=== PATIENT | male | born 1945 | race Caucasian/White ===

== ENCOUNTER 2019-04-28 02:33 | Day surgery (SDC) | payer OTHER ==
[2019-04-28] VITALS (7 sets, daily range): BP systolic 134–165; BP diastolic 64–77
[~2019-04-28] VITALS: Ht 182.9 cm; Wt 100.0 kg
[2019-04-28] MEDS ORDERED: METAL LOCK LOOP XX ONE (02:53)
[2019-04-28] MEDS ORDERED: NS 500 ML IV ONE (03:15)
[2019-04-28 03:36] LABS: BASO # 0.1 10^3/uL (0.0-0.2); BASO % 0.5 % (0.0-1.0); EOS # 0.4 10^3/uL (0.0-0.50); EOS % 4.2 % (0.0-3.0); HEMATOCRIT 48.1 % (42.0-52.0); HEMOGLOBIN 15.6 g/dl (13.5-17.5); LYMPH # 1.6 10^3/uL (1.5-4.5); LYMPH % 16.5 % (24.0-44.0); MEAN CORPUSCULAR HGB CONC 32.4 g/dl (32.0-36.5); MEAN CORPUSCULAR VOLUME 92.5 fl (80.0-96.0); MONO # 0.8 10^3/uL (0.0-0.8); MONO % 7.9 % (0.0-5.0); NEUTROPHILS % 70.7 % (36.0-66.0); PLATELET COUNT, AUTOMATED 277 10^3/uL (150-450); WHITE BLOOD COUNT 9.9 10^3/uL (4.0-10.0)
[2019-04-28] MEDS ORDERED: LIPI20TA PO (03:39)
[2019-04-28] MEDS ORDERED: BAYE325T12 PO (03:39)
[2019-04-28] MEDS ORDERED: AMLO5TAB6 PO (03:40)
[2019-04-28 03:47] LABS: INR 0.93; PROTHROMBIN TIME 12.6 SECONDS (12.1-14.4)
[2019-04-28 03:48] LABS: PARTIAL THROMBOPLASTIN TIME 33.8 SECONDS (25.4-37.6)
[2019-04-28] MEDS ORDERED: ONDANSETRON 4MG/2ML VIAL (J2405) As Ordered ONE ×2 (03:53→10:39)
[2019-04-28 03:55] LABS: ALBUMIN 3.8 GM/DL (3.2-5.2); ALT/SGPT 28 U/L (12-78); BILIRUBIN,DIRECT 0.2 MG/DL (0.0-0.2); BILIRUBIN,TOTAL 0.4 MG/DL (0.2-1.0); BLOOD UREA NITROGEN 15 MG/DL (7-18); CALCIUM LEVEL 8.6 MG/DL (8.8-10.2); CARBON DIOXIDE LEVEL 27 MEQ/L (21-32); CHLORIDE LEVEL 108 MEQ/L (98-107); GLOMERULAR FILTRATION RATE > 60.0 (>42); GLUCOSE, FASTING 156 MG/DL (70-100); LIPASE 223 U/L (73-393); POTASSIUM SERUM 4.4 MEQ/L (3.5-5.1); SODIUM LEVEL 142 MEQ/L (136-145); TOTAL PROTEIN 7.1 GM/DL (6.4-8.2)
[2019-04-28] MEDS ORDERED: MORPHINE 4 MG/ML 1ML VIAL/SYRINGE (J2270) IV ONE ×2 (04:00→07:30)
[2019-04-28] MEDS ORDERED: ONDANSETRON 4MG/2ML VIAL (J2405) IV ONE (04:00)
[2019-04-28] MEDS ORDERED: ISOVUE-370 76% 100ML VIAL (Q9967) As Ordered ONE (04:04)
[2019-04-28] MEDS ORDERED: MORPHINE 2 MG/ML 1ML SYRINGE (J2270) IV ONE (05:45)
--- NOTE | 2019-04-28 06:25 | REPVR ---
EXAM: CT Abdomen and Pelvis With Contrast EXAM DATE/TIME: 04/28/19 (4:04am) CLINICAL HISTORY: 74 year old male with LLQ / left inguinal mass, swelling TECHNIQUE: Imaging protocol: Axial computed tomography images of the abdomen and pelvis with intravenous contrast. Coronal and sagittal reformatted images were created and reviewed. Radiation optimization: All CT scans at this facility use at least one of these dose optimization techniques: automated exposure control; mA and/or kV adjustment per patient size (includes targeted exams where dose is matched to clinical indication); or iterative reconstruction. Contrast material: Isovue 370 Contrast volume: 100 ml Contrast route: IV COMPARISON: No relevant prior studies available FINDINGS: ABDOMEN: Liver: Normal. No solid mass. Gallbladder and bile ducts: Multiple calcified gallstones. No ductal dilatation. Pancreas: Normal. No ductal dilatation. Spleen: Normal. No splenomegaly. Adrenals: Normal. No mass. Kidneys and ureters: Normal. No hydronephrosis. Stomach and bowel: Left inguinal hernia, containing mildly distended, thickened wall bowel. Hazy herniated fat adjacent to the bowel. The hernia extends to the left hemiscrotum. Some fluid also present in the hernia sac. Partial or early bowel obstruction is suspected here. Appendix: No evidence of appendicitis. PELVIS: Bladder: Unremarkable as visualized. Reproductive: Enlarged prostate gland. ABDOMEN and PELVIS: Intraperitoneal space: Normal. No free air. No significant fluid collection. Bones/joints: No acute fracture nor dislocation. Soft tissues: Unremarkable. RLQ surgical clips. Vasculature: Atherosclerotic changes of the abdominal aorta and iliac arteries. No abdominal aortic aneurysm. Lymph nodes: Normal. No enlarged lymph nodes. IMPRESSION: Left inguinal hernia, containing thickened, mildly distended bowel. The hernia extends to the left hemiscrotum. Partial or early bowel obstruction is suspected here. Vascular compromise (strangulation) is of great concern. Close follow-up and surgical consultation are suggested. Multiple calcified gallstones. Enlarged prostate gland. Electronically signed by: [place] On 04/28/2019 06:24:55 AM
[2019-04-28] MEDS ORDERED: XALA0.007 OU (07:28)
[2019-04-28] MEDS ORDERED: DORZ2SOL5 OU (07:28)
[2019-04-28] MEDS ORDERED: ATOR40TA75 PO (07:28)
[2019-04-28] MEDS ORDERED: CITA20TA6 PO (07:28)
[2019-04-28] MEDS ORDERED: ATOR80TA59 PO (08:54)
--- NOTE | 2019-04-28 09:30 | ECGEPIP ---
[facility] - ED Test Date: 2019-04-28 Pat Name: JEFF MARIANO Department: Room: - Gender: Male [place]: TC : 1945 Requested By: João Alvarenga Order Number: [id number] Reading MD: Kishor Conde Measurements Intervals [place] Rate: 73 P: 59 AL: 148 QRS: 35 QRSD: 130 T: QT: 376 QTc: 415 Interpretive Statements SINUS RHYTHM RIGHT BUNDLE BRANCH BLOCK Comparison tracing not on file Electronically Signed on 04-28-2019 9:30:16 EDT by Kishor Conde
[2019-04-28] MEDS ORDERED: LIDOCAINE 2% INJ 100 MG/5 ML SDV (FOR ANES.) As Ordered ONE ×2 (09:57→10:00)
[2019-04-28] MEDS ORDERED: PROPOFOL 200 MG/20 ML VIAL As Ordered ONE (09:57)
[2019-04-28] MEDS ORDERED: MIDAZOLAM INJ 2 MG/2 ML VIAL (J2250) As Ordered ONE (09:58)
[2019-04-28] MEDS ORDERED: fentaNYL 100 MCG/2 ML INJECTION (J3010) As Ordered ONE (09:58)
[2019-04-28] MEDS ORDERED: BUPIVACAINE/EPIN 0.25% 30 ML VIAL As Ordered ONE (10:04)
[2019-04-28] MEDS ORDERED: ceFAZolin 1GM INJ (J0690 PER 500MG) As Ordered ONE (10:07)
[2019-04-28] MEDS ORDERED: ROCURONIUM BROMIDE 50 MG/5 ML VIAL As Ordered ONE (10:13)
[2019-04-28] MEDS ORDERED: dexameTHASONE 4 MG/ML 1ML VIAL (J1100) As Ordered ONE (10:23)
[2019-04-28] MEDS ORDERED: NEOSTIGMINE 10 MG/10 ML VIAL (J2710) As Ordered ONE (10:39)
[2019-04-28] MEDS ORDERED: KETOROLAC 60 MG/2 ML VIAL (J1885) As Ordered ONE (10:39)
[2019-04-28] MEDS ORDERED: GLYCOPYRROLATE INJ 0.2 MG/ML 2 ML VIAL As Ordered ONE (10:39)
[2019-04-28] MEDS ORDERED: ceFAZolin 1GM INJ (J0690 PER 500MG) IV ONE (10:43)
[2019-04-28] MEDS ORDERED: NS 1,000 ML IV SCH (11:42)
[2019-04-28] MEDS ORDERED: PROMETHAZINE INJ 25 MG/ML VIAL (J2550) IV PRN (11:45)
[2019-04-28] MEDS ORDERED: NORCO, ANEXSIA 5/325MG TABLET (HYDROcodone/ACETAMINOPHEN) PO PRN ×2 (11:45)
[2019-04-28] MEDS ORDERED: KETOROLAC 30 MG/ML VIAL (J1885) IV PRN (11:45)
[2019-04-28] MEDS ORDERED: MORPHINE 4 MG/ML 1ML VIAL/SYRINGE (J2270) IV PRN ×2 (11:45)
[2019-04-28] MEDS ORDERED: METOCLOPRAMIDE INJ 10MG/2ML VIAL (J2765) IV PRN ×2 (11:45→12:30)
[2019-04-28] MEDS ORDERED: ONDANSETRON 4MG/2ML VIAL (J2405) IV PRN ×2 (11:45→12:30)
[2019-04-28] MEDS ORDERED: PERCOCET 5MG/325MG TAB As Ordered ONE (12:05)
[2019-04-28] MEDS ORDERED: PERCOCET 5MG/325MG TAB PO PRN (12:30)
[2019-04-28] MEDS ORDERED: LR 1,000 ML IV SCH (12:30)
[2019-04-28] MEDS ORDERED: fentaNYL 100 MCG/2 ML INJECTION (J3010) IV PRN (12:30)
[2019-04-28] MEDS: PANTOPRAZOLE 40MG TAB (PROTONIX) PO SCH (13:43)
[2019-04-28] MEDS: amLODIPine 5 MG TAB PO SCH (13:44)
[2019-04-28] MEDS: CitaloPRAM (CeleXA) 10 MG TABLET PO SCH (13:45)
--- NOTE | 2019-04-28 13:52 | RO ---
DATE OF PROCEDURE: 04/28/2019 PREOPERATIVE DIAGNOSIS: Incarcerated recurrent left inguinal hernia. POSTOPERATIVE DIAGNOSIS: Incarcerated recurrent left inguinal hernia. PROCEDURE: Left inguinal hernia repair with UltraPro mesh (incarcerated). SURGEON: Brad Mancera Jr., MD ANESTHESIA: General endotracheal anesthesia. ESTIMATED BLOOD LOSS (EBL): 50 mL. FLUIDS: Crystalloid. DESCRIPTION OF PROCEDURE: Brief procedure summary: The patient was brought to the operating room, was given general anesthesia. After adequate anesthesia and preoperative antibiotics were given, the patient was prepped and draped in usual sterile fashion. The patient had both a robotic left inguinal hernia repair in the past and had a previous open left inguinal hernia repair in the remote past. There was some question whether there was mesh with the open repair in the past. I do see mesh in the inguinal area. I am not sure whether it is from the laparoscopic/robotic verus the open. In any case, the patient was prepped and draped in usual sterile fashion. A left inguinal incision was made overlying the hernia, and I was able to, as I was dissecting down, the hernia was able to be reduced quite easily. There was a great deal of inflammatory and old scar tissue overlying the hernia site itself and even over external oblique. I did follow the lateral aspect of external oblique down to the inguinal canal area. In the external ring and then working backwards, I was able to get up into the external ring and then opened up the external oblique. Once again, there was a great deal of fibrosis throughout this area; and eventually, I was able to dissect the cord structures off the inguinal ligament; and then working from lateral to medial, there was some old scarring on the right-hand side and some preperitoneal fat that had worked its way through the indirect area, although it was just on the medial aspect of the indirect area, and the floor of the canal was also attenuated in this area. Eventually, once I was able to mobilize this adequately, there was still a great deal of thickened external oblique tissue over the internal ring area; and eventually I was able to mobilize this adequately to see the cord structures and the hernia sac. The hernia sac was mobilized all the way to the internal ring and then suture-ligated at its base and then returned to the peritoneal cavity. There was no blood within the peritoneal hernia sac and no bowel within this either. At this time, the cord structures were quite thickened throughout this area, and not only was there the typical cord structures. I was looking for an additional lipoma in the cord given that it was so thick, but really what I was feeling was a great deal of scar tissue of the external oblique overlying the cord structures in this area; and to better identify the internal ring area, I needed to dissect off the external oblique muscle fibers and all the scar tissue off the transverse abdominis muscle posteriorly/ the canal to get adequately to see what I needed to see. Eventually, once this was mobilized adequately, I then found that the internal ring could be brought together a little bit with some 2-0 Vicryls; and so I closed this defect, which was quite patulous at the internal ring, and then used UltraPro mesh cut to the appropriate size, and I used a SecureStrap to tack this in at pubis on the internal obliques superiorly on the tails of the mesh. The lateral aspect on the inguinal ligament was sutured in with 2-0 polydioxanone suture (PDS). The external oblique, which was quite attenuated in this area and quite difficult to discern from all the rest of the scar tissue, was brought together overlying the mesh with 2-0 Vicryl. 3-0 Vicryl was used to approximate the dermis. 4-0 Vicryl was used to approximate the skin. Steri-Strips and dry sterile dressing were applied. The patient was awakened, extubated, brought to the recovery room awake, alert, and hemodynamic stable. Sponge and needle counts correct times two.
[2019-04-28] MEDS: ceFAZolin SOD 1 GM in D5W MINI-BAG PLUS 50 ML IV SCH (18:10)
[2019-04-28] MEDS: DOCUSATE SODIUM 100 MG CAP PO SCH (20:11)
[2019-04-28] MEDS ORDERED: ATORVASTATIN 20 MG TAB PO SCH (21:00)
[2019-04-28] MEDS ORDERED: LATANOPROST 0.005% OPHTH SOLN 2.5 ML OU SCH (21:00)
[2019-04-29 02:00] VITALS: BP 132/66
[2019-04-29] MEDS: ceFAZolin SOD 1 GM in D5W MINI-BAG PLUS 50 ML IV SCH (02:31)
[2019-04-29 06:00] VITALS: BP 125/60
[2019-04-29] MEDS: CitaloPRAM (CeleXA) 10 MG TABLET PO SCH (08:15)
[2019-04-29 08:16] VITALS: BP 125/60
[2019-04-29] MEDS: DOCUSATE SODIUM 100 MG CAP PO SCH (08:16)
[2019-04-29] MEDS: amLODIPine 5 MG TAB PO SCH (08:16)
[2019-04-29] MEDS: PANTOPRAZOLE 40MG TAB (PROTONIX) PO SCH (08:16)
[2019-04-29 10:00] VITALS: BP 139/64
== END 2019-04-29 11:15 | disposition home or self-care (01) ==
LOC: M ED 02:33 → M SDC 08:30 → M MS5PR 12:36 → M SDC 04-29 11:15
PROVIDERS: ATTEND Surgery
DX: K40.31 Unilateral inguinal hernia, with obstruction, without gangrene, recurrent (principal); I10 Essential (primary) hypertension; E78.5 Hyperlipidemia, unspecified; Z86.73 Personal history of transient ischemic attack (TIA), and cerebral infarction without residual deficits; Z96.1 Presence of intraocular lens
CPT/HCPCS: 49521; 74177; 80048; 80076; 83605; 83690; 85025; 85610; 85730; 88302; 93005; 96360; 96361; 96374; 96375; 96376; 99285; C1781; J0690; J1100; J1885; J2250; J2270; J2405; J2710; J3010; Q9967